=== PATIENT | male | born 1985 | race Caucasian/White ===

== ENCOUNTER 2018-08-08 20:21 | Emergency (ER) | payer BC ==
[~2018-08-08] VITALS: Ht 175.3 cm; Wt 96.4 kg
[2018-08-08 20:26] VITALS: Ht 175.3 cm; Wt 96.4 kg
[2018-08-08] MEDS ORDERED: VOLTAREN75 MG PO (22:42)
[2018-08-08] MEDS ORDERED: BACLOFEN20 M1 PO (22:42)
[2018-08-08 23:35] VITALS: BP 140/93
== END 2018-08-08 23:35 | disposition home or self-care (01) ==
LOC: D.ER 20:21 → EDBD 20:21 → D.ER 23:35
DX: S16.1XXA Strain of muscle, fascia and tendon at neck level, initial encounter (principal); V43.52XA Car driver injured in collision with other type car in traffic accident, initial encounter; Y93.89 Activity, other specified; Y92.410 Unspecified street and highway as the place of occurrence of the external cause

== ENCOUNTER 2018-09-28 22:17 | Emergency (ER) | payer OTHER ==
[~2018-09-28] VITALS: Ht 175.3 cm; Wt 93.2 kg
[~2018-09-28 22:17] MED LIST: BACLOFEN20 M1 PO; VOLTAREN75 MG PO
[2018-09-28 22:21] VITALS: Ht 175.3 cm; Wt 93.2 kg
[2018-09-29] MEDS ORDERED: NEURONTIN 400400 MG PO (00:03)
[2018-09-29] MEDS ORDERED: DICLOFENAC SODI50 MG PO (00:03)
[2018-09-29 00:40] VITALS: BP 121/60
== END 2018-09-29 00:40 | disposition home or self-care (01) ==
LOC: D.ER 22:17
DX: M54.5 Low back pain (principal)